=== PATIENT | male | born 1980 | race American Indian/Alaskan Native ===

== ENCOUNTER 2018-10-07 15:15 | Emergency (ER) | payer BC ==
[2018-10-07 15:32] VITALS: BP 137/87
--- NOTE | 2018-10-07 15:36 | Emergency Department Report ---
ED ENT HPI - General Chief complaint: Earache Stated complaint: (R) EAR PAIN Time Seen by Provider: 10/07/18 15:29 Source: patient Mode of arrival: Ambulatory Limitations: No Limitations - History of Present Illness Initial comments: pt is a 38 yo male who presents for right ear pain that began 4 months ago. He has not seen anyone for this. He denies any fever, drainage from the ear, hearing problems. Pt states has right sided dental issue and has right sided dental pain that radiates to the ear. no PMHx no alleriges to meds +smoker +occ drinker no drug use - Related Data Previous Rx's Medication Instructions Recorded Last Taken Type Acetaminophen/Codeine [Tylenol 1 tab PO Q6H PRN #10 tab 10/07/18 Unknown Rx /Codeine # 3 tab] Ibuprofen [Motrin 600 MG tab] 600 mg PO Q8H PRN #20 tablet 10/07/18 Unknown Rx Penicillin Vk [Veetids TAB] 500 mg PO QID 7 Days #56 tablet 10/07/18 Unknown Rx Allergies Allergy/AdvReac Type Severity Reaction Status Date / Time No Known Allergies Allergy Unverified 10/07/18 15:16 ED Dental HPI - General Chief complaint: Earache Stated complaint: (R) EAR PAIN Time Seen by Provider: 10/07/18 15:29 Source: patient Mode of arrival: Ambulatory Limitations: No Limitations - Related Data Previous Rx's Medication Instructions Recorded Last Taken Type Acetaminophen/Codeine [Tylenol 1 tab PO Q6H PRN #10 tab 10/07/18 Unknown Rx /Codeine # 3 tab] Ibuprofen [Motrin 600 MG tab] 600 mg PO Q8H PRN #20 tablet 10/07/18 Unknown Rx Penicillin Vk [Veetids TAB] 500 mg PO QID 7 Days #56 tablet 10/07/18 Unknown Rx Allergies Allergy/AdvReac Type Severity Reaction Status Date / Time No Known Allergies Allergy Unverified 10/07/18 15:16 ED Review of Systems ROS: Stated complaint: (R) EAR PAIN Other details as noted in HPI Comment: All other systems reviewed and negative ED Past Medical Hx - Past Medical History Previous Medical History?: No - Surgical History Past Surgical History?: No - Medications Home Medications: Home Medications Medication Instructions Recorded Confirmed Last Taken Type Acetaminophen/Codeine [Tylenol 1 tab PO Q6H PRN #10 tab 10/07/18 Unknown Rx /Codeine # 3 tab] Ibuprofen [Motrin 600 MG tab] 600 mg PO Q8H PRN #20 tablet 10/07/18 Unknown Rx Penicillin Vk [Veetids TAB] 500 mg PO QID 7 Days #56 tablet 10/07/18 Unknown Rx ED Physical Exam - General Limitations: No Limitations General appearance: alert, in no apparent distress - Head Head exam: Present: atraumatic, normocephalic - Eye Eye exam: Present: normal appearance, PERRL - ENT ENT exam: Present: normal orophraynx, mucous membranes moist, TM's normal bilaterally, normal external ear exam, other (tooth extraction on the right lower side, edema present to the inside of the right cheek, no induration or fluctuance on the gums, appears to have dental carries in the right upper and right lower, uvula is midline, normal oropharynx) - Respiratory Respiratory exam: Absent: respiratory distress - Neurological Exam Neurological exam: Present: alert, oriented X3 - Psychiatric Psychiatric exam: Present: normal affect, normal mood - Skin Skin exam: Present: warm, dry, intact ED Course Vital Signs 10/07/18 15:31 Temperature 99.0 F Pulse Rate 100 H Respiratory 20 Rate Blood Pressure 137/87 O2 Sat by Pulse 100 Oximetry ED Medical Decision Making - Medical Decision Making pt is a 38 yo male who presents for right ear pain that began 4 months ago. He has not seen anyone for this. He denies any fever, drainage from the ear, hearing problems. Pt states has right sided dental issue and has right sided dental pain that radiates to the ear. no PMHx no alleriges to meds +smoker +occ drinker no drug use vitals are stable. on exam normal TMs and canals bilaterally. tooth extraction on the right lower side, edema present to the inside of the right cheek, no induration or fluctuance on the gums, appears to have dental carries in the right upper and right lower, uvula is midline, normal oropharynx. no dental abscess identified. pt appears to have dental caries with poor dentition. pt given abx, pain medication, and anti-inflammatory. discussed to please take medication as prescribed. only use pain medication for severe pain and do not drive or operate heavy machinery while taking. please follow up with a dentist in the next 3-5 days. return to the emergency room for any new or worsening symptoms. - Differential Diagnosis otitis media, otitis externa, dental abscess, dental caries Critical care attestation.: If time is entered above; I have spent that time in minutes in the direct care of this critically ill patient, excluding procedure time. ED Disposition Clinical Impression: Dental caries Disposition: TO HOME OR SELFCARE Is pt being admited?: No Does the pt Need Aspirin: No Condition: Stable Instructions: Dental Caries (ED) Additional Instructions: please take medication as prescribed. only use pain medication for severe pain and do not drive or operate heavy machinery while taking. please follow up with a dentist in the next 3-5 days. return to the emergency room for any new or worsening symptoms. Prescriptions: Ibuprofen [Motrin 600 MG tab] 600 mg PO Q8H PRN #20 tablet PRN Reason: Pain Acetaminophen/Codeine [Tylenol /Codeine # 3 tab] 1 tab PO Q6H PRN #10 tab PRN Reason: Pain , Severe (7-10) Penicillin Vk [Veetids TAB] 500 mg PO QID 7 Days #56 tablet Referrals: a, dentist [Other] - 2-3 Days Time of Disposition: 15:37 Print Language: CZECH
== END 2018-10-07 17:06 | disposition home or self-care (01) ==
LOC: ED 15:15
DX: K02.9 Dental caries, unspecified (principal)
CPT/HCPCS: 99282